=== PATIENT | male | born 1950 | race Caucasian/White ===

== ENCOUNTER → 2016-11-29 | Outpatient (CLI) | payer MEDICARE ==
[~2016-11-29] MED LIST: ALBU8.5H8 INH; AMLO5TAB4 PO; CLON1PAT2 TD; CYCL10TA50 PO; HYDR25TA6 PO; LOSA100T6; METF-163; MOME13HF; MOME13HF2 PO; NEBI20TA2 PO
== END | disposition home or self-care (01) ==
LOC: RAD 13:49
PROVIDERS: ATTEND Family Medicine
DX: M51.37 Other intervertebral disc degeneration, lumbosacral region (principal); M51.36 Other intervertebral disc degeneration, lumbar region; M25.552 Pain in left hip; M48.07 Spinal stenosis, lumbosacral region; M25.78 Osteophyte, vertebrae
CPT/HCPCS: 72100; 72148

== ENCOUNTER → 2017-04-27 | Outpatient (CLI) | payer MEDICARE ==
[~2017-04-27] MED LIST changes: +ALBU18HF INH; +ASPI-515 PO; +B12 PO; +BEET ROOT PO; +FLUT1BLS INH; +GABA300C10 PO; +HYDR-3241 PO; +OMEG-14 PO; +TRAM50TA2 PO; +VITAMIN A PO; +VITAMIN D3 PO
[2017-04-27 10:45] LABS: BASOPHILS % (AUTO) 1 % (0-1); EOSINOPHILS # (AUTO) 0.37 x10^3/uL (0-0.4); EOSINOPHILS % (AUTO) 4 % (1-7); LYMPHOCYTES # (AUTO) 2.19 x10^3/uL (1-3.4); LYMPHOCYTES % (AUTO) 25 % (22-44); MD NO; MEAN CORPUSCULAR HEMOGLOBIN 28.5 pg (27.5-34.5); MEAN CORPUSCULAR HGB CONC 33.4 g/dL (33.2-36.2); MEAN CORPUSCULAR VOLUME 85.4 fL (81-97); MEAN PLATELET VOLUME 8.3 fL (7.4-10.4); MONOCYTES # (AUTO) 0.57 x10^3/uL (0.2-0.8); MONOCYTES % (AUTO) 7 % (2-9); NEUTROPHILS # (AUTO) 5.47 x10^3/uL (1.8-6.8); NEUTROPHILS % (AUTO) 63 % (42-75); PLATELET COUNT 333 x10^3/uL (130-400); RED BLOOD COUNT 5.47 x10^6/uL (4.38-5.82)
[2017-04-27 10:52] LABS: MICROSCOPIC NOT IND
[2017-04-27 10:53] LABS: INTERNATIONAL NORMALIZED RATIO 1.04 (0.93-1.1); PROTHROMBIN TIME 10.7 Seconds (9.6-11.5)
[2017-04-27 11:02] LABS: ALANINE AMINOTRANSFERASE 27 U/L (12-78); ALBUMIN 3.8 g/dL (3.4-5.0); ANION GAP 7 mmol/L (5-15); CALCIUM 8.9 mg/dL (8.5-10.1); CHLORIDE 103 mmol/L (98-107); CREATININE 0.94 mg/dL (0.7-1.3)
[2017-04-27 11:03] LABS: CULTURE INDICATED? NO
[2017-04-27 11:04] LABS: ALKALINE PHOSPHATASE 90 U/L (45-117); BILIRUBIN,TOTAL 0.4 mg/dL (0.2-1.0); TOTAL PROTEIN 8.4 g/dL (6.4-8.2)
== END | disposition home or self-care (01) ==
LOC: STAR 09:27
PROVIDERS: ATTEND Neurological Surgery
DX: Z01.818 Encounter for other preprocedural examination (principal); M51.36 Other intervertebral disc degeneration, lumbar region; R10.9 Unspecified abdominal pain
CPT/HCPCS: 36415; 71046; 72110; 80053; 81003; 85025; 85610; 85730; 93005

== ENCOUNTER 2017-08-27 13:02 | Inpatient (IN) | payer MEDICARE ==
[~2017-08-27] VITALS: Ht 182.9 cm; Wt 113.0 kg
[~2017-08-27 13:02] MED LIST changes: +HYDR-3240 PO; +HYDR-3307 PO; -METF-163; +METF-163 PO; +METH750T87 PO; +POLY17PO3 PO
[2017-08-27] MEDS ORDERED: SODIUM CHLORIDE 0.9% 1,000 ML IV ONE (13:28)
[2017-08-27 14:04] LABS: BASOPHILS # (AUTO) 0.09 x10^3/uL (0-0.1); BASOPHILS % (AUTO) 1 % (0-1); EOSINOPHILS # (AUTO) 0.36 x10^3/uL (0-0.4); EOSINOPHILS % (AUTO) 4 % (1-7); LYMPHOCYTES # (AUTO) 2.43 x10^3/uL (1-3.4); LYMPHOCYTES % (AUTO) 25 % (22-44); MD NO; MEAN CORPUSCULAR HEMOGLOBIN 27.8 pg (27.5-34.5); MEAN CORPUSCULAR HGB CONC 33.1 g/dL (33.2-36.2); MEAN CORPUSCULAR VOLUME 83.9 fL (81-97); MEAN PLATELET VOLUME 7.9 fL (7.4-10.4); MONOCYTES % (AUTO) 8 % (2-9); NEUTROPHILS # (AUTO) 6.11 x10^3/uL (1.8-6.8); NEUTROPHILS % (AUTO) 62 % (42-75); PLATELET COUNT 377 x10^3/uL (130-400); RED BLOOD COUNT 4.83 x10^6/uL (4.38-5.82); RED CELL DISTRIBUTION WIDTH 16.1 % (9.4-14.8)
[2017-08-27 14:13] LABS: ALBUMIN 3.2 g/dL (3.4-5.0); ANION GAP 12 mmol/L (5-15); CALCIUM 9.2 mg/dL (8.5-10.1); CHLORIDE 101 mmol/L (98-107)
[2017-08-27 14:16] LABS: TROPONIN I < 0.015 ng/mL (0.000-0.045)
[2017-08-27] MEDS ORDERED: ONDANSETRON 2MG/ML, 2ML ONE ×2 (14:17→22:57)
[2017-08-27] MEDS ORDERED: MORPHINE SULFATE 4 MG/ML, 1ML ONE ×3 (14:18→17:30)
[2017-08-27] MEDS: MORPHINE SULFATE 4 MG/ML, 1ML IVPush PRN ×2 (14:20→15:28)
[2017-08-27] MEDS ORDERED: ONDANSETRON 2MG/ML, 2ML IVPush ONE (14:30)
[2017-08-27] MEDS ORDERED: OMNIPAQUE 350 MG/ML, 100ML BOTTLE ONE (16:44)
[2017-08-27] MEDS ORDERED: MORPHINE SULFATE 4 MG/ML, 1ML IVPush ONE (18:00)
[2017-08-27] MEDS ORDERED: morphine SULFATE 10 MG/ML, 1ML IVPush PRN (19:00)
[2017-08-27] MEDS ORDERED: POLYETHYLENE GLYCOL 17 GM PACKET PO PRN (19:00)
[2017-08-27] MEDS ORDERED: TEMPLATE NON-FORMULARY MED. (Albuterol Sulfate (Ventolin Hfa) 1 PUFF) INH SCH (19:00)
[2017-08-27] MEDS ORDERED: DOCUSATE 100 MG CAPSULE PO PRN (19:00)
[2017-08-27] MEDS ORDERED: BISACODYL 10 MG SUPP PR PRN (19:00)
[2017-08-27] MEDS ORDERED: METHOCARBAMOL 750 MG TABLET PO PRN (19:00)
[2017-08-27] MEDS ORDERED: ACETAMINOPHEN 325 MG TABLET PO PRN ×2 (19:00→23:00)
[2017-08-27] MEDS ORDERED: hydrALAzine 20 MG/ML, 1ML IVPush PRN (19:00)
[2017-08-27] MEDS ORDERED: HYDROcodone/APAP 5/325 TABLET PO PRN (19:00)
[2017-08-27] MEDS ORDERED: ONDANSETRON 2MG/ML, 2ML IVPush PRN (19:00)
[2017-08-27 20:18] VITALS: BP 174/100
[2017-08-27] MEDS: TEMPLATE NON-FORMULARY MED. (Albuterol Sulfate (Proair Hfa) 2 PUFF(S)) INH SCH (21:00)
[2017-08-27 21:04] VITALS: BP 159/83
[2017-08-27] MEDS: metFORMIN XR 500 MG TAB.ER.24H PO SCH (21:17)
[2017-08-27] MEDS: GABAPENTIN 300 MG CAPSULE PO SCH (21:18)
[2017-08-27 21:19] VITALS: BP 174/100
[2017-08-27 22:13] LABS: MICROSCOPIC NOT IND
[2017-08-27 22:16] LABS: CULTURE INDICATED? NO
[2017-08-27] MEDS ORDERED: BUPIVACAINE/PF 0.5% ONE (22:28)
[2017-08-27] MEDS ORDERED: BACITRACIN OINT 500U/GM, 15 GM ONE (22:29)
[2017-08-27] MEDS ORDERED: THROMBIN 5,000 UNIT VIAL TP ONE (22:29)
[2017-08-27] MEDS ORDERED: BACITRACIN 50,000 UNIT ONE (22:29)
[2017-08-27] MEDS ORDERED: EPINEPHRINE 1 MG/ML, 1ML ONE (22:29)
[2017-08-27] MEDS ORDERED: FENTANYL PF 250 MCG/5ML ONE (22:38)
[2017-08-27] MEDS ORDERED: CEFAZOLIN 1,000 MG ONE ×2 (22:51)
[2017-08-27] MEDS ORDERED: ROCURONIUM 10MG/ML,5ML ONE (22:51)
[2017-08-27] MEDS ORDERED: PROPOFOL 10 MG/ML, 20ML ONE (22:51)
[2017-08-27] MEDS ORDERED: SUCCINYLCHOLINE 20 MG/ML, 10ML ONE (22:51)
[2017-08-27] MEDS ORDERED: METOCLOPRAMIDE 5 MG/ML, 2ML ONE (22:52)
[2017-08-27] MEDS ORDERED: MEPERIDINE/PF 25MG/0.5ML IVPush PRN (23:00)
[2017-08-27] MEDS ORDERED: hydrALAzine 20 MG/ML, 1ML IV PRN (23:00)
[2017-08-27] MEDS ORDERED: PROMETHAZINE 25 MG/ML, 1ML IV PRN (23:00)
[2017-08-27] MEDS ORDERED: HALOPERIDOL 5 MG/ML IV PRN (23:00)
[2017-08-27] MEDS ORDERED: EPHEDRINE 50 MG/ML, 1ML IVPush PRN (23:00)
[2017-08-27] MEDS ORDERED: METOPROLOL 1 MG/ML, 5ML IV PRN (23:00)
[2017-08-27] MEDS ORDERED: ALBUTEROL SULFATE 2.5 MG/3 ML NPPB PRN (23:00)
[2017-08-27] MEDS ORDERED: LABETALOL 5MG/ML, 20ML IV PRN (23:00)
[2017-08-27] MEDS ORDERED: OXYcodone 5 MG/5 ML ORAL.SOL UDC PO PRN (23:00)
[2017-08-27] MEDS ORDERED: VANCOMYCIN 1,000 MG ONE (23:48)
[2017-08-28] MEDS ORDERED: FENTANYL PF 250 MCG/5ML ONE (00:02)
[2017-08-28] MEDS ORDERED: NEOSTIGMINE 1 MG/ML, 10ML ONE (00:09)
[2017-08-28] MEDS ORDERED: GLYCOPYRROLATE 0.4 MG/2 ML, 2ML ONE (00:09)
[2017-08-28] MEDS ORDERED: ONDANSETRON 2MG/ML, 2ML ONE (00:09)
[2017-08-28] MEDS ORDERED: ACETAMINOPHEN 650 MG/20.3 ML UDC ONE (00:25)
[2017-08-28] MEDS ORDERED: FENTANYL PF 100 MCG/2ML ONE ×2 (00:25→00:39)
[2017-08-28] MEDS ORDERED: OXYcodone 5 MG/5 ML ORAL.SOL UDC ONE (00:26)
[2017-08-28] MEDS: FENTANYL PF 100 MCG/2ML IV PRN ×4 (00:32→00:51)
[2017-08-28] MEDS ORDERED: LABETALOL 5MG/ML, 20ML ONE (00:42)
[2017-08-28] MEDS ORDERED: morphine SULFATE 10 MG/ML, 1ML ONE (01:04)
[2017-08-28] MEDS: MORPHINE SULFATE 4 MG/ML, 1ML IVPush PRN ×3 (01:06→01:23)
[2017-08-28 02:00] VITALS: BP 125/75
[2017-08-28] MEDS: HYDROcodone/APAP 10/325 MG TABLET PO PRN ×2 (03:57→09:19)
[2017-08-28 04:01] LABS: BASOPHILS # (AUTO) 0.06 x10^3/uL (0-0.1); BASOPHILS % (AUTO) 1 % (0-1); EOSINOPHILS # (AUTO) 0.27 x10^3/uL (0-0.4); EOSINOPHILS % (AUTO) 3 % (1-7); LYMPHOCYTES # (AUTO) 1.54 x10^3/uL (1-3.4); LYMPHOCYTES % (AUTO) 15 % (22-44); MD NO; MEAN CORPUSCULAR HEMOGLOBIN 28.1 pg (27.5-34.5); MEAN CORPUSCULAR HGB CONC 33.2 g/dL (33.2-36.2); MEAN CORPUSCULAR VOLUME 84.4 fL (81-97); MEAN PLATELET VOLUME 7.6 fL (7.4-10.4); MONOCYTES # (AUTO) 0.81 x10^3/uL (0.2-0.8); MONOCYTES % (AUTO) 8 % (2-9); NEUTROPHILS % (AUTO) 75 % (42-75); PLATELET COUNT 331 x10^3/uL (130-400); RED BLOOD COUNT 4.24 x10^6/uL (4.38-5.82); RED CELL DISTRIBUTION WIDTH 15.9 % (9.4-14.8)
[2017-08-28 04:14] LABS: TROPONIN I < 0.015 ng/mL (0.000-0.045)
[2017-08-28 07:41] VITALS: BP 136/79
[2017-08-28 08:36] LABS: ANION GAP 9 mmol/L (5-15); CALCIUM 8.6 mg/dL (8.5-10.1); CHLORIDE 103 mmol/L (98-107); CREATININE 0.72 mg/dL (0.7-1.3)
[2017-08-28 08:40] LABS: TROPONIN I < 0.015 ng/mL (0.000-0.045)
[2017-08-28] MEDS ORDERED: POLYETHYLENE GLYCOL 17 GM PACKET PO SCH (09:00)
[2017-08-28] MEDS: OMEGA-3/FISH OIL CAPSULE PO SCH (09:14)
[2017-08-28] MEDS: metFORMIN XR 500 MG TAB.ER.24H PO SCH ×2 (09:14→21:20)
[2017-08-28] MEDS: SODIUM CHLORIDE FLUSH 10ML SYR IVF SCH ×3 (09:14→21:20)
[2017-08-28] MEDS: GABAPENTIN 300 MG CAPSULE PO SCH ×3 (09:14→21:20)
[2017-08-28] MEDS: AMLODIPINE 5 MG TABLET PO SCH (09:14)
[2017-08-28] MEDS: TEMPLATE NON-FORMULARY MED. (Albuterol Sulfate (Proair Hfa) 2 PUFF(S)) INH SCH ×2 (09:15→21:00)
[2017-08-28] MEDS ORDERED: MORPHINE SULFATE 4 MG/ML, 1ML IVPush PRN (09:30)
[2017-08-28] MEDS ORDERED: OXYcodone/APAP 5/325MG TABLET PO PRN (09:30)
[2017-08-28] MEDS ORDERED: ONDANSETRON 2MG/ML, 2ML IV PRN (09:30)
[2017-08-28] MEDS: CEFAZOLIN PMX 1GM/50ML 50 ML IV SCH ×2 (10:29→17:27)
[2017-08-28] MEDS: METHOCARBAMOL 750 MG TABLET PO SCH ×2 (10:29→17:28)
[2017-08-28] MEDS: OMEPRAZOLE 20 MG CAPSULE.DR PO SCH (13:49)
[2017-08-28 14:28] VITALS: BP 157/83
[2017-08-28] MEDS: OXYcodone/APAP 10/325MG TABLET PO PRN ×2 (17:28→21:20)
[2017-08-28 19:35] VITALS: BP 130/72
[2017-08-29] MEDS: CEFAZOLIN PMX 1GM/50ML 50 ML IV SCH (01:02)
[2017-08-29] MEDS: HYDROcodone/APAP 5/325 TABLET PO PRN ×2 (01:03→06:10)
[2017-08-29] MEDS: METHOCARBAMOL 750 MG TABLET PO SCH ×2 (01:03→08:13)
[2017-08-29 01:23] VITALS: BP 133/83
[2017-08-29 05:47] LABS: BASOPHILS # (AUTO) 0.08 x10^3/uL (0-0.1); BASOPHILS % (AUTO) 1 % (0-1); EOSINOPHILS # (AUTO) 0.36 x10^3/uL (0-0.4); EOSINOPHILS % (AUTO) 3 % (1-7); LYMPHOCYTES # (AUTO) 1.59 x10^3/uL (1-3.4); LYMPHOCYTES % (AUTO) 15 % (22-44); MD NO; MEAN CORPUSCULAR HEMOGLOBIN 27.9 pg (27.5-34.5); MEAN CORPUSCULAR HGB CONC 33.5 g/dL (33.2-36.2); MEAN CORPUSCULAR VOLUME 83.5 fL (81-97); MEAN PLATELET VOLUME 8.1 fL (7.4-10.4); MONOCYTES % (AUTO) 9 % (2-9); NEUTROPHILS # (AUTO) 7.68 x10^3/uL (1.8-6.8); NEUTROPHILS % (AUTO) 72 % (42-75); PLATELET COUNT 361 x10^3/uL (130-400); RED BLOOD COUNT 4.42 x10^6/uL (4.38-5.82); RED CELL DISTRIBUTION WIDTH 15.7 % (9.4-14.8)
[2017-08-29 06:01] LABS: ANION GAP 8 mmol/L (5-15); CALCIUM 8.9 mg/dL (8.5-10.1); CHLORIDE 103 mmol/L (98-107)
[2017-08-29 06:05] LABS: ALANINE AMINOTRANSFERASE 15 U/L (12-78); ALKALINE PHOSPHATASE 87 U/L (45-117); BILIRUBIN,TOTAL 0.8 mg/dL (0.2-1.0); CREATININE 0.72 mg/dL (0.7-1.3); TOTAL PROTEIN 6.9 g/dL (6.4-8.2)
[2017-08-29] MEDS ORDERED: ENOXAPARIN 40 MG/0.4 ML SQ SCH ×2 (07:00→09:30)
[2017-08-29 07:55] VITALS: BP 154/80
[2017-08-29] MEDS: GABAPENTIN 300 MG CAPSULE PO SCH (08:13)
[2017-08-29] MEDS: OMEGA-3/FISH OIL CAPSULE PO SCH (08:13)
[2017-08-29] MEDS: OMEPRAZOLE 20 MG CAPSULE.DR PO SCH (08:13)
[2017-08-29] MEDS: metFORMIN XR 500 MG TAB.ER.24H PO SCH (08:13)
[2017-08-29] MEDS: AMLODIPINE 5 MG TABLET PO SCH (08:13)
[2017-08-29] MEDS: SODIUM CHLORIDE FLUSH 10ML SYR IVF SCH (08:14)
[2017-08-29] MEDS: TEMPLATE NON-FORMULARY MED. (Albuterol Sulfate (Proair Hfa) 2 PUFF(S)) INH SCH (08:15)
[2017-08-29] MEDS ORDERED: DOCUSATE 100 MG CAPSULE PO SCH (09:00)
[2017-08-29] MEDS ORDERED: POLYETHYLENE GLYCOL 17 GM PACKET PO SCH (09:00)
[2017-08-29] MEDS ORDERED: METH750T87 PO (11:36)
[2017-08-29] MEDS ORDERED: CEPH-368 PO (11:36)
== END 2017-08-29 11:58 | disposition home or self-care (01) | DRG 908 ==
LOC: ED 14:18 → EDIP 18:13 → 4WST 20:18 → 4EST 08-28 01:54 → DCLOUNGE 08-29 11:45
PROVIDERS: ADMIT Hospitalist; ATTEND Hospitalist
PROC: 01NB0ZZ Release Lumbar Nerve, Open Approach (ICD-10-PCS; 2017-08-27)
PROC: 01NR0ZZ Release Sacral Nerve, Open Approach (ICD-10-PCS; 2017-08-27)
PROC: 0S900ZZ Drainage of Lumbar Vertebral Joint, Open Approach (ICD-10-PCS; principal; 2017-08-27 22:30)
DX: G97.61 Postprocedural hematoma of a nervous system organ or structure following a nervous system procedure (principal); E44.0 Moderate protein-calorie malnutrition; M48.062 Spinal stenosis, lumbar region with neurogenic claudication; E11.65 Type 2 diabetes mellitus with hyperglycemia; J45.909 Unspecified asthma, uncomplicated; Y83.8 Other surgical procedures as the cause of abnormal reaction of the patient, or of later complication, without mention of misadventure at the time of the procedure; M51.16 Intervertebral disc disorders with radiculopathy, lumbar region; D72.829 Elevated white blood cell count, unspecified; G89.29 Other chronic pain; I11.9 Hypertensive heart disease without heart failure; Z66 Do not resuscitate; Z79.84 Long term (current) use of oral hypoglycemic drugs; Z68.33 Body mass index [BMI] 33.0-33.9, adult; Z87.891 Personal history of nicotine dependence
CPT/HCPCS: 36415; 71045; 71275; 72148; 80048; 80053; 81003; 82040; 83880; 84484; 85025; 85379; 93005; 93306; 93970; 96374; 96375; 96376; J0171; J0690; J2405; J2704; J2710; J3010; J3370; J3490; Q9967; J0330; J2765; J7030

== ENCOUNTER 2017-11-27 01:43 | Inpatient (IN) | payer MEDICARE ==
[~2017-11-27] VITALS: Ht 182.9 cm; Wt 115.0 kg
[~2017-11-27 01:43] MED LIST changes: +CEPH-368 PO; -LOSA100T6; +LOSA100T7
[2017-11-27] MEDS ORDERED: ONDANSETRON ODT 4 MG PO ONE (02:00)
[2017-11-27] MEDS ORDERED: SODIUM CHLORIDE FLUSH 10ML SYR IVF ONE ×2 (02:00)
[2017-11-27] MEDS ORDERED: ONDANSETRON ODT 4 MG ONE (02:05)
[2017-11-27] MEDS ORDERED: MORPHINE SULFATE 4 MG/ML, 1ML ONE (02:05)
[2017-11-27 02:11] LABS: BASOPHILS # (AUTO) 0.07 x10^3/uL (0-0.1); BASOPHILS % (AUTO) 1 % (0-1); EOSINOPHILS # (AUTO) 0.64 x10^3/uL (0-0.4); EOSINOPHILS % (AUTO) 6 % (1-7); LYMPHOCYTES # (AUTO) 1.51 x10^3/uL (1-3.4); LYMPHOCYTES % (AUTO) 14 % (22-44); MD NO; MEAN CORPUSCULAR HEMOGLOBIN 28.6 pg (27.5-34.5); MEAN CORPUSCULAR HGB CONC 33.8 g/dL (33.2-36.2); MEAN CORPUSCULAR VOLUME 84.7 fL (81-97); MEAN PLATELET VOLUME 7.8 fL (7.4-10.4); MONOCYTES # (AUTO) 0.86 x10^3/uL (0.2-0.8); MONOCYTES % (AUTO) 8 % (2-9); NEUTROPHILS # (AUTO) 7.48 x10^3/uL (1.8-6.8); NEUTROPHILS % (AUTO) 71 % (42-75); PLATELET COUNT 306 x10^3/uL (130-400); RED BLOOD COUNT 4.93 x10^6/uL (4.38-5.82); RED CELL DISTRIBUTION WIDTH 15.6 % (9.4-14.8)
[2017-11-27] MEDS: MORPHINE SULFATE 4 MG/ML, 1ML IVPush PRN ×2 (02:17→05:31)
[2017-11-27 02:22] LABS: ALANINE AMINOTRANSFERASE 27 U/L (12-78); ALBUMIN 3.5 g/dL (3.4-5.0); CALCIUM 9.2 mg/dL (8.5-10.1); CREATININE 1.16 mg/dL (0.7-1.3)
[2017-11-27 02:46] LABS: ANION GAP 11 mmol/L (5-15); CHLORIDE 105 mmol/L (98-107)
[2017-11-27 02:48] LABS: ALKALINE PHOSPHATASE 96 U/L (45-117); BILIRUBIN,TOTAL 0.3 mg/dL (0.2-1.0); TOTAL PROTEIN 7.6 g/dL (6.4-8.2)
[2017-11-27] MEDS ORDERED: KETOROLAC 30 MG/1 ML ONE ×2 (03:19→13:16)
[2017-11-27] MEDS ORDERED: SODIUM CHLORIDE 0.9% 1,000 ML IV ONE (03:29)
[2017-11-27] MEDS ORDERED: SODIUM CHLORIDE FLUSH 10ML SYR IVF PRN (03:30)
[2017-11-27] MEDS ORDERED: KETOROLAC 30 MG/1 ML IVPush ONE (03:30)
[2017-11-27 03:37] LABS: MICROSCOPIC AUTO
[2017-11-27 03:39] LABS: CULTURE INDICATED? NO
[2017-11-27] MEDS ORDERED: TRAM-47 PO (03:53)
[2017-11-27] MEDS ORDERED: SODIUM CHLORIDE 0.9% 1,000 ML IV SCH (05:07)
[2017-11-27 05:24] VITALS: BP 151/91
[2017-11-27] MEDS ORDERED: ONDANSETRON ODT 4 MG PO PRN (05:30)
[2017-11-27] MEDS ORDERED: BISACODYL 10 MG SUPP PR PRN (05:30)
[2017-11-27] MEDS ORDERED: ACETAMINOPHEN 325 MG TABLET PO PRN (05:30)
[2017-11-27] MEDS ORDERED: TEMPLATE NON-FORMULARY MED. (Albuterol Sulfate (Ventolin Hfa) 1 PUFF) INH SCH (05:30)
[2017-11-27] MEDS ORDERED: POLYETHYLENE GLYCOL 17 GM PACKET PO PRN (05:30)
[2017-11-27] MEDS ORDERED: OXYcodone IR 5MG TABLET PO PRN (05:30)
[2017-11-27] MEDS: GABAPENTIN 300 MG CAPSULE PO SCH ×3 (05:30→16:41)
[2017-11-27] MEDS ORDERED: morphine SULFATE 10 MG/ML, 1ML IVPush PRN (05:30)
[2017-11-27] MEDS ORDERED: LABETALOL 5MG/ML, 20ML IVPush PRN (05:30)
[2017-11-27] MEDS: OMEGA-3/FISH OIL CAPSULE PO SCH ×2 (05:30→09:00)
[2017-11-27] MEDS ORDERED: DOCUSATE 100 MG CAPSULE PO PRN (05:30)
[2017-11-27] MEDS ORDERED: hydrALAzine 20 MG/ML, 1ML IVPush PRN (05:30)
[2017-11-27] MEDS ORDERED: PROMETHAZINE 25 MG/ML, 1ML IM PRN (05:30)
[2017-11-27] MEDS ORDERED: ONDANSETRON 2MG/ML, 2ML IVPush PRN (05:30)
[2017-11-27] MEDS ORDERED: ALBUTEROL/IPRATROPIUM 2.5MG/0.5MG, 3 ML NPPB PRN (06:00)
[2017-11-27 06:43] LABS: INTERNATIONAL NORMALIZED RATIO 1.03 (0.93-1.1); PROTHROMBIN TIME 10.7 Seconds (9.6-11.5)
[2017-11-27 06:48] LABS: HEMOGLOBIN A1C 6.9 % (4.2-6.3)
[2017-11-27 06:50] VITALS: BP 139/91
[2017-11-27 06:52] LABS: FREE T4 (FREE THYROXINE) 1.03 ng/dL (0.76-1.46); THYROID STIMULATING HORMONE 0.794 mIU/L (0.358-3.740)
[2017-11-27] MEDS: INSULIN LISPRO 100 UNITS/ML, PEN SQ-INSULIN SCH ×2 (07:00→12:05)
[2017-11-27] MEDS ORDERED: AMLODIPINE 5 MG TABLET PO SCH (09:00)
[2017-11-27] MEDS ORDERED: VITAMIN A 10,000 UNIT CAPSULE PO SCH (09:00)
[2017-11-27] MEDS ORDERED: CHOLECALCIFEROL 1,000 UNIT TABLET PO SCH (09:00)
[2017-11-27] MEDS ORDERED: CYANOCOBALAMIN 1,000 MCG TABLET PO SCH (09:00)
[2017-11-27] MEDS ORDERED: INSULIN LISPRO 100 UNITS/ML, PEN SQ-INSULIN SCH (12:00)
[2017-11-27] MEDS ORDERED: FENTANYL PF 100 MCG/2ML ONE (12:52)
[2017-11-27] MEDS ORDERED: ONDANSETRON 2MG/ML, 2ML ONE (13:16)
[2017-11-27] MEDS ORDERED: CEFAZOLIN 1,000 MG ONE (13:16)
[2017-11-27] MEDS ORDERED: DEXAMETHASONE 4 MG/ML, 1ML ONE (13:16)
[2017-11-27] MEDS ORDERED: PROPOFOL 10 MG/ML, 20ML ONE (13:16)
[2017-11-27] MEDS ORDERED: MEPERIDINE/PF 25MG/0.5ML IVPush PRN (14:00)
[2017-11-27] MEDS ORDERED: hydrALAzine 20 MG/ML, 1ML IV PRN (14:00)
[2017-11-27] MEDS ORDERED: OXYcodone 5 MG/5 ML ORAL.SOL UDC PO PRN (14:00)
[2017-11-27] MEDS ORDERED: HALOPERIDOL 5 MG/ML IV PRN (14:00)
[2017-11-27] MEDS ORDERED: FENTANYL PF 100 MCG/2ML IV PRN (14:00)
[2017-11-27] MEDS ORDERED: HYDROmorphone 1 MG/ML, 1ML IV PRN (14:00)
[2017-11-27] MEDS ORDERED: LABETALOL 5MG/ML, 20ML IV PRN (14:00)
[2017-11-27] MEDS ORDERED: DIPHENHYDRAMINE 50 MG/ML, 1ML IVPush PRN (14:00)
[2017-11-27] MEDS ORDERED: OMNIPAQUE 350 MG/ML, 50 ML BOTTLE IV ONE (14:02)
[2017-11-27] MEDS ORDERED: ACET-1600 PO (15:49)
[2017-11-27 16:57] VITALS: BP 151/81
== END 2017-11-27 17:07 | disposition home or self-care (01) | DRG 669 ==
LOC: ED 02:33 → EDIP 03:29 → 4NOR 04:41 → DCLOUNGE 16:58
PROVIDERS: ADMIT Internal Medicine; ATTEND Internal Medicine
PROC: 0T778DZ Dilation of Left Ureter with Intraluminal Device, Via Natural or Artificial Opening Endoscopic (ICD-10-PCS; 2017-11-27)
PROC: 0TC78ZZ Extirpation of Matter from Left Ureter, Via Natural or Artificial Opening Endoscopic (ICD-10-PCS; principal; 2017-11-27 13:00)
DX: N13.2 Hydronephrosis with renal and ureteral calculous obstruction (principal); D72.829 Elevated white blood cell count, unspecified; E11.9 Type 2 diabetes mellitus without complications; E86.0 Dehydration; F12.90 Cannabis use, unspecified, uncomplicated; I10 Essential (primary) hypertension; J45.909 Unspecified asthma, uncomplicated; Z87.891 Personal history of nicotine dependence; Z98.1 Arthrodesis status; Z88.0 Allergy status to penicillin; Z88.8 Allergy status to other drugs, medicaments and biological substances
CPT/HCPCS: 36415; 74176; 74420; 80053; 81001; 82360; 82962; 83036; 83735; 84439; 84443; 85025; 85610; 88300; 96374; 99285; J0690; J1100; J1885; J2405; J2704; J3010; Q0162; Q9967; C1758; C1769; C2617; J2270; J7030

== ENCOUNTER 2017-12-01 10:03 | Emergency (ER) | payer MEDICARE ==
[~2017-12-01] VITALS: Ht 185.4 cm; Wt 109.0 kg
[~2017-12-01 10:03] MED LIST changes: +ACET-1600 PO; +TRAM-47 PO
[2017-12-01 10:24] LABS: BASOPHILS # (AUTO) 0.23 x10^3/uL (0-0.1); BASOPHILS % (AUTO) 2 % (0-1); EOSINOPHILS # (AUTO) 0.45 x10^3/uL (0-0.4); EOSINOPHILS % (AUTO) 4 % (1-7); LYMPHOCYTES # (AUTO) 1.58 x10^3/uL (1-3.4); LYMPHOCYTES % (AUTO) 13 % (22-44); MD NO; MEAN CORPUSCULAR HEMOGLOBIN 27.8 pg (27.5-34.5); MEAN CORPUSCULAR HGB CONC 33.1 g/dL (33.2-36.2); MEAN PLATELET VOLUME 7.8 fL (7.4-10.4); MONOCYTES # (AUTO) 0.74 x10^3/uL (0.2-0.8); MONOCYTES % (AUTO) 6 % (2-9); NEUTROPHILS # (AUTO) 9.48 x10^3/uL (1.8-6.8); NEUTROPHILS % (AUTO) 76 % (42-75); PLATELET COUNT 333 x10^3/uL (130-400); RED BLOOD COUNT 4.85 x10^6/uL (4.38-5.82); RED CELL DISTRIBUTION WIDTH 15.9 % (9.4-14.8)
[2017-12-01] MEDS ORDERED: MORPHINE SULFATE 4 MG/ML, 1ML ONE (10:27)
[2017-12-01] MEDS ORDERED: KETOROLAC 30 MG/1 ML ONE (10:27)
[2017-12-01] MEDS ORDERED: ONDANSETRON ODT 4 MG ONE (10:28)
[2017-12-01] MEDS ORDERED: SODIUM CHLORIDE FLUSH 10ML SYR IVF ONE (10:30)
[2017-12-01] MEDS ORDERED: PLEASE ENTER HEIGHT AND WEIGHT MC SCH (10:30)
[2017-12-01] MEDS ORDERED: KETOROLAC 30 MG/1 ML IVPush ONE (10:30)
[2017-12-01] MEDS ORDERED: ONDANSETRON ODT 4 MG PO ONE (10:30)
[2017-12-01] MEDS ORDERED: MORPHINE SULFATE 4 MG/ML, 1ML IVPush PRN (10:30)
[2017-12-01 10:33] LABS: ALBUMIN 3.4 g/dL (3.4-5.0); ANION GAP 12 mmol/L (5-15); CALCIUM 8.2 mg/dL (8.5-10.1); CHLORIDE 103 mmol/L (98-107); CREATININE 1.02 mg/dL (0.7-1.3)
[2017-12-01] MEDS ORDERED: DULO20CA45 PO (10:48)
[2017-12-01] MEDS ORDERED: BENA1TAB9 PO (10:49)
[2017-12-01 11:08] LABS: CULTURE INDICATED? YES; MICROSCOPIC INDICATED
[2017-12-01] MEDS ORDERED: CEFTRIAXONE PMX 1GM/50ML 50 ML ONE (11:54)
[2017-12-01] MEDS ORDERED: OXYcodone/APAP 10/325MG TABLET ONE (11:54)
[2017-12-01] MEDS ORDERED: OXYcodone/APAP 10/325MG TABLET PO ONE (12:00)
[2017-12-01 12:57] VITALS: BP 146/85
[2017-12-01] MEDS ORDERED: CEFTRIAXONE 1,000 MG in SODIUM CHLORIDE 0.9% 50 ML IVPB ONE (13:00)
== END 2017-12-01 13:00 | disposition home or self-care (01) ==
LOC: ED 11:38
DX: N10 Acute pyelonephritis (principal); I10 Essential (primary) hypertension; G89.29 Other chronic pain; Z88.0 Allergy status to penicillin
CPT/HCPCS: 36415; 74176; 80048; 81001; 82040; 85025; 87086; 93005; 96365; 96375; 99285; J0696; J1885; Q0162

== ENCOUNTER 2018-06-15 11:51 | Observation (INO) | payer MEDICARE ==
[~2018-06-15] VITALS: Ht 182.9 cm; Wt 124.0 kg
[~2018-06-15 11:51] MED LIST changes: +BENA1TAB9 PO; +DULO20CA45 PO; +LOSA100T14; -LOSA100T7; +POLY17PO29 PO; -POLY17PO3 PO
[2018-06-15 13:07] LABS: BASOPHILS # (AUTO) 0.09 x10^3/uL (0-0.1); BASOPHILS % (AUTO) 1 % (0-1); EOSINOPHILS # (AUTO) 0.33 x10^3/uL (0-0.4); EOSINOPHILS % (AUTO) 5 % (1-7); LYMPHOCYTES # (AUTO) 1.62 x10^3/uL (1-3.4); LYMPHOCYTES % (AUTO) 22 % (22-44); MD NO; MEAN CORPUSCULAR HEMOGLOBIN 28.9 pg (27.5-34.5); MEAN CORPUSCULAR HGB CONC 33.8 g/dL (33.2-36.2); MEAN CORPUSCULAR VOLUME 85.4 fL (81-97); MEAN PLATELET VOLUME 7.7 fL (7.4-10.4); MONOCYTES # (AUTO) 0.61 x10^3/uL (0.2-0.8); MONOCYTES % (AUTO) 9 % (2-9); NEUTROPHILS % (AUTO) 63 % (42-75); PLATELET COUNT 259 x10^3/uL (130-400); RED BLOOD COUNT 4.85 x10^6/uL (4.38-5.82); RED CELL DISTRIBUTION WIDTH 15.4 % (9.4-14.8)
[2018-06-15 13:19] LABS: ALBUMIN 3.7 g/dL (3.4-5.0); ANION GAP 10 mmol/L (5-15); CHLORIDE 105 mmol/L (98-107)
[2018-06-15 13:23] LABS: TROPONIN I < 0.015 ng/mL (0.000-0.045)
--- NOTE | 2018-06-15 13:58 | NUR ---
CONTINUE TO MONITOR PT. NO CP AT THIS TIME
[2018-06-15] MEDS ORDERED: FUROSEMIDE 40 MG/4 ML IV ONE (15:00)
[2018-06-15] MEDS ORDERED: POTASSIUM CHLORIDE 20 MEQ TAB.ER.PRT PO ONE (15:00)
[2018-06-15] MEDS ORDERED: LIDODERM 5% PATCH TD PRN (15:00)
[2018-06-15] MEDS ORDERED: ONDANSETRON 2MG/ML, 2ML IVPush PRN (15:00)
[2018-06-15] MEDS ORDERED: ONDANSETRON ODT 4 MG PO PRN (15:00)
[2018-06-15] MEDS ORDERED: ALBUTEROL SULFATE 2.5 MG/3 ML NPPB PRN ×2 (15:00→15:14)
[2018-06-15] MEDS ORDERED: morphine SULFATE 10 MG/ML, 1ML ONE (15:03)
[2018-06-15] MEDS ORDERED: ONDANSETRON 2MG/ML, 2ML ONE (15:03)
[2018-06-15] MEDS ORDERED: ENOXAPARIN 40 MG/0.4 ML ONE (15:03)
[2018-06-15] MEDS ORDERED: FUROSEMIDE 20 MG/2 ML ONE (15:04)
[2018-06-15] MEDS ORDERED: POTASSIUM CHLORIDE 20 MEQ TAB.ER.PRT ONE (15:04)
[2018-06-15] MEDS ORDERED: FUROSEMIDE 40 MG/4 ML ONE (15:04)
[2018-06-15] MEDS: ENOXAPARIN 40 MG/0.4 ML SQ SCH (15:13)
[2018-06-15] MEDS: METHOCARBAMOL 500 MG TABLET PO PRN (15:20)
[2018-06-15] MEDS ORDERED: MORPHINE SULFATE 4 MG/ML, 1ML ONE (15:23)
[2018-06-15] MEDS: morphine SULFATE 10 MG/ML, 1ML IVPush PRN ×3 (15:25→22:01)
--- NOTE | 2018-06-15 15:42 | NUR ---
AFTER SEEN BY HOSPITALIST, MEDICATED PER ORDERS INCLUDING MORPHINE FOR BACK PAIN.
[2018-06-15 15:43] LABS: TROPONIN I < 0.015 ng/mL (0.000-0.045)
[2018-06-15 15:50] LABS: HEMOGLOBIN A1C 7.6 % (4.2-6.3)
--- NOTE | 2018-06-15 16:10 | NUR ---
PT STATES PAIN IMPROVED 5/10 SINCE MEDICATED. REPORT TO QIAN RODRIGUEZ. TO BE TRANSPORTED TO FLOOR ON MONITOR WITH TECH.
[2018-06-15] MEDS ORDERED: ACET-1600 PO (16:45)
[2018-06-15] MEDS ORDERED: IBUP-1484 PO (16:45)
[2018-06-15] MEDS: GABAPENTIN 300 MG CAPSULE PO SCH ×2 (17:08→22:01)
[2018-06-15] MEDS ORDERED: MAGNESIUM SULFATE PMX 2GM/50ML 50 ML IV ONE (18:30)
[2018-06-15 19:45] VITALS: BP 143/82
[2018-06-15 21:17] LABS: TROPONIN I < 0.015 ng/mL (0.000-0.045)
[2018-06-15] MEDS: metFORMIN 500 MG TABLET PO SCH (22:01)
[2018-06-16 01:42] VITALS: BP 136/76
[2018-06-16] MEDS: METHOCARBAMOL 500 MG TABLET PO PRN (01:44)
[2018-06-16 04:56] LABS: BASOPHILS # (AUTO) 0.08 x10^3/uL (0-0.1); BASOPHILS % (AUTO) 1 % (0-1); EOSINOPHILS # (AUTO) 0.41 x10^3/uL (0-0.4); EOSINOPHILS % (AUTO) 5 % (1-7); LYMPHOCYTES # (AUTO) 2.09 x10^3/uL (1-3.4); LYMPHOCYTES % (AUTO) 27 % (22-44); MD NO; MEAN CORPUSCULAR HEMOGLOBIN 28.8 pg (27.5-34.5); MEAN CORPUSCULAR HGB CONC 33.5 g/dL (33.2-36.2); MEAN CORPUSCULAR VOLUME 85.9 fL (81-97); MEAN PLATELET VOLUME 8.2 fL (7.4-10.4); MONOCYTES # (AUTO) 0.85 x10^3/uL (0.2-0.8); MONOCYTES % (AUTO) 11 % (2-9); NEUTROPHILS # (AUTO) 4.29 x10^3/uL (1.8-6.8); NEUTROPHILS % (AUTO) 56 % (42-75); PLATELET COUNT 264 x10^3/uL (130-400); RED BLOOD COUNT 5.14 x10^6/uL (4.38-5.82); RED CELL DISTRIBUTION WIDTH 15.9 % (9.4-14.8)
[2018-06-16 05:07] LABS: ANION GAP 8 mmol/L (5-15); CALCIUM 8.5 mg/dL (8.5-10.1); CHLORIDE 102 mmol/L (98-107)
[2018-06-16 05:19] LABS: THYROID STIMULATING HORMONE 0.897 mIU/L (0.358-3.740)
[2018-06-16] MEDS ORDERED: REGADENOSON 0.4 MG/5 ML SYRINGE ONE (08:56)
[2018-06-16] MEDS ORDERED: HYDROCHLOROTHIAZIDE 12.5 MG CAPSULE PO SCH (09:00)
[2018-06-16] MEDS ORDERED: BENAZEPRIL 10 MG TABLET PO SCH (09:00)
[2018-06-16 11:55] VITALS: BP 166/102
[2018-06-16] MEDS: metFORMIN 500 MG TABLET PO SCH (11:57)
[2018-06-16] MEDS: PREGABALIN 25 MG CAPSULE PO SCH ×2 (12:19→15:58)
[2018-06-16 14:08] VITALS: BP 154/98
[2018-06-16] MEDS: ENOXAPARIN 40 MG/0.4 ML SQ SCH (15:58)
== END 2018-06-16 17:00 | disposition left against medical advice (07) ==
LOC: ED 13:16 → EDIP 14:56 → INTOOBSV 14:56 → 5SO 16:33
PROVIDERS: ADMIT Hospitalist; ATTEND Hospitalist
DX: R07.89 Other chest pain (principal); E66.9 Obesity, unspecified; F12.90 Cannabis use, unspecified, uncomplicated; G89.29 Other chronic pain; I10 Essential (primary) hypertension; N20.1 Calculus of ureter; Z79.899 Other long term (current) drug therapy; Z86.73 Personal history of transient ischemic attack (TIA), and cerebral infarction without residual deficits; Z87.891 Personal history of nicotine dependence; E11.40 Type 2 diabetes mellitus with diabetic neuropathy, unspecified; J45.909 Unspecified asthma, uncomplicated
CPT/HCPCS: 36415; 71046; 78452; 80048; 82040; 83036; 83735; 83880; 84100; 84443; 84484; 85025; 93005; 93017; 93306; 96365; 96366; 96372; 96375; 96376; 99284; A9502; C9898; G0378; J1650; J1940; J2270; J2405; J2785; J3475; 96374